=== PATIENT | female | born 1945 | race Native Hawaiian/Other Pacific Islander ===

== ENCOUNTER 2018-03-04 16:09 | Outpatient (CLI) | payer OTHER ==
[2018-03-04 16:36] LABS: PLATELET COUNT 625 K/uL (152-353)
[2018-03-04 17:23] LABS: POTASSIUM 3.6 mmol/L (3.6-5.2)
== END 2018-03-04 19:34 | disposition home or self-care (01) ==
LOC: LABW 16:09
PROVIDERS: Internal Medicine Cardiovascular Disease
DX: Z79.899 Other long term (current) drug therapy (principal); Z51.81 Encounter for therapeutic drug level monitoring
CPT/HCPCS: 36415; 80048; 85027

== ENCOUNTER 2022-05-29 14:12 | Outpatient (CLI) | payer OTHER | END 2022-05-29 19:12 | disposition home or self-care (01) | LOC: US 14:12 | PROVIDERS: ATTEND Physician Assistant | DX: R09.89 Other specified symptoms and signs involving the circulatory and respiratory systems (principal) ==

== ENCOUNTER 2022-07-16 14:50 | Outpatient (CLI) | payer OTHER | END 2022-07-16 19:00 | disposition home or self-care (01) | LOC: RESP 14:50 | PROVIDERS: ATTEND Internal Medicine Cardiovascular Disease | DX: I10 Essential (primary) hypertension (principal) ==